=== PATIENT | male | born 1995 | race Caucasian/White ===

== ENCOUNTER 2021-02-22 20:47 | Emergency (ER) | payer OTHER, SELFPAY ==
[2021-02-22 20:52] VITALS: BP 130/81; PULSE 66; RESP 18; TEMP 36.8; O2SAT 96; BMI 33.9
--- NOTE | 2021-02-22 22:39 | ED_ITS ---
HPI - Wound/Laceration General Chief Complaint: Wound/Laceration Stated Complaint: Finger laceration at work Source: patient Mode of arrival: ambulatory Limitations: no limitations History of Present Illness HPI narrative: 26-year-old male presents with laceration to the tip of his finger sustained at work. He was cutting a bagel with a serrated knife, slipped and cut the tip of his finger. He reports that his last Tdap vaccine was approximately 5 years ago. Patient does not have any other complaints at this time. Onset (ago): hour(s) (Within the hour of arrival) Place: work Patient tetanus UTD: No Context: accidental Associated symptoms: pain Related Data Home Medications Medication Instructions Recorded Confirmed methylprednisolone 4 mg tablet mg PO 06/13/20 11/08/20 desvenlafaxine succinate 100 mg 100 mg PO QAM 10/06/20 01/25/21 tablet,extended release 24 hr zolpidem 10 mg tablet 10 mg PO BEDTIME PRN 11/08/20 01/25/21 Previous Rx's Medication Instructions Recorded dextroamphetamine-amphetamine 30 30 mg PO DAILY 30 Days #30 tab 07/20/20 mg tablet prednisone 50 mg tablet 50 mg PO DAILY 6 Days #6 tab 12/07/20 prednisone 20 mg tablet 20 mg PO .COMPLEX #18 tab 01/25/21 Allergies Allergy/AdvReac Type Severity Reaction Status Date / Time fluoxetine [Prozac] Allergy Unknown seizure Verified 01/25/21 12:35 Review of Systems Review of Systems: Constitutional: No Fever, No Chills ENT/Mouth: No Ear Pain, No Hoarseness, No sore throat Eyes: No Eye Pain, No Swelling, No Redness, No Foreign Body Cardiovascular: No Chest Pain, No SOB Respiratory: No Cough, No Dyspnea Gastrointestinal: No Nausea, No Vomiting, No Diarrhea, No abdominal Pain Genitourinary: No Dysuria, No Hematuria Musculoskeletal: positive left index finger pain, No Myalgias, No Joint Swelling Skin: Positive left index finger laceration, No rash Neuro: No Weakness, No Numbness, No Paresthesias, No Loss of Consciousness, No Dizziness, No Headache Psych: No Anxiety/Panic, No Depression Heme/Lymph: no easy bruising, no Lymphadenopathy Endocrine: No Polyuria, No Polydipsia Yes all other systems are reviewed and are negative [facility] Past Medical History Attestation statement: The following information was validated with the patient. Source: old records reviewed Medical History ADD (attention deficit disorder) ADHD Mireles's palsy IBS (irritable bowel syndrome) Surgical History H/O colonoscopy Family History Family History Father No problems noted. Mother Hypothyroidism Lymphoma Brother No problems noted. Brother No problems noted. Brother No problems noted. Social History Social History Alcohol intake: never Advance Directives: No Physical Exam Vital Signs: Vital Signs: Last Vital Signs Temp 98.3 F 02/22/21 20:52 Pulse 66 02/22/21 20:52 Resp 18 02/22/21 20:52 BP 130/81 02/22/21 20:52 Pulse Ox 96 02/22/21 20:52 Body Mass Index 33.9 Appearance: Alert. Oriented X3. No acute distress. Eyes: Pupils equal, round and reactive to light. ENT: Pharynx normal. Neck: Normal inspection. Neck supple. CVS: Normal heart rate and rhythm. Pulses normal. Respiratory: No respiratory distress. Breath sounds normal. Abdomen: Soft and nontender. Skin: Positive 1 cm laceration to the tip of left index finger, the tip of the nail is involved but does not include the nail bed, full range of motion, no indication of tendon injury, brisk capillary refill, otherwise all other Skin warm and dry. Normal skin color. Normal skin turgor. Extremities: No lower extremity edema. Neuro: No motor deficit. No sensory deficit. Course Course Course Narrative: 26-year-old male presents with laceration to the tip of his finger sustained while he was at work. Tdap updated today. Prepped and draped in sterile fashion, irrigated with copious amounts of normal saline, please refer to procedure note for full details. Three sutures applied. Brisk capillary refill in full range of motion maintained status post suture placement laceration repair plan of care is for patient to be discharged home, will have patient follow up with [facility]. 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 Patient verbalized understanding of and agrees to plan of care discharge home. Procedures Laceration Laceration 1: Site: hand Side (If applicable): left (Index finger) Size (cm): 1 Description: flap Depth: simple, single layer Local Anesthetic: lidocaine 2% Amount of anesthesia used (mL): 3 Pre-repair: wound explored, irrigated extensively and deep structures intact Skin layer closed with: nylon Size (cm): 5-0 Number of sutures: 3 Technique: simple, interrupted MDM - Wound/Laceration Differential Diagnosis Differential diagnosis: Likely laceration Medical Records Attestation: I reviewed the patient's medical records. Discharge Plan Discharge Clinical Impression: Laceration Patient Disposition: Home, Self-Care Instructions: Finger Laceration (ED) Additional Instructions: You were evaluated for laceration to the tip of her finger sustained while working. We placed 3 sutures. Please do not work for 5 days to ensure proper healing. Please return in 7 days to have sutures removed. Please follow-up with work [facility] as this is a work related injury. We updated your Tdap vaccine today. Thank you for choosing this emergency department for evaluation. Please follow-up with primary care physician as needed. Return to the emergency department for any new, concerning, or worsening symptoms. Prescriptions: No Action dextroamphetamine-amphetamine [Adderall] 30 mg tablet 30 mg PO DAILY 30 Days Qty: 30 RF: 0 prednisone 50 mg tablet 50 mg PO DAILY 6 Days Qty: 6 RF: 0 methylprednisolone 4 mg tablet PO RF: 0 zolpidem 10 mg tablet 10 mg PO BEDTIME PRNRF: 0 prednisone 20 mg tablet 20 mg PO .COMPLEX Qty: 18 RF: 0 desvenlafaxine succinate 100 mg tablet extended release 24 hr 100 mg PO QAM RF: 0 Referrals: [facility] [Provider Group] - 2 days (Laceration sustained at work) Stand Alone Forms: Work/School Release Interventions: ED Discharge Assessment Last Done: 02/22/21 23:30 Discharge Date/Time: 02/22/21 23:31
[2021-02-22] MEDS: Diphth,Pertus(ACell),Tet Adult 0.5 ML SYRINGE IM (22:55)
[2021-02-22] MEDS: Lidocaine HCl 2 % MPF 5 ML VIAL SUBCUT (22:55)
== END 2021-02-22 23:31 | disposition home or self-care (01) ==
PROVIDERS: Emergency Provider Internal Medicine; PCP Nurse Practitioner Family
DX: S61.311A Laceration without foreign body of left index finger with damage to nail, initial encounter (principal); W26.0XXA Contact with knife, initial encounter; Y93.G3 Activity, cooking and baking; Y92.89 Other specified places as the place of occurrence of the external cause; Y99.0 Civilian activity done for income or pay
CPT/HCPCS: 12001; 90471; 90715; 99283; 99284

== ENCOUNTER → 2021-03-01 15:00 | Outpatient (BNVA) | payer OTHER, SELFPAY | PROVIDERS: PCP Nurse Practitioner Family; Visit Provider Physician Assistant Medical | DX: S61.211A Laceration without foreign body of left index finger without damage to nail, initial encounter (principal); W26.0XXA Contact with knife, initial encounter | CPT/HCPCS: 99203; 99212 ==

== ENCOUNTER 2021-04-13 14:06 | Outpatient (REF) | payer OTHER, SELFPAY | END 2021-04-13 14:07 | disposition home or self-care (01) | LOC: HO.LNP 14:06 | PROVIDERS: Visit Provider Hospitalist | DX: K29.70 Gastritis, unspecified, without bleeding (principal) | CPT/HCPCS: U0003; U0005 ==

== ENCOUNTER 2021-05-31 09:04 | Outpatient (REF) | payer OTHER, SELFPAY ==
--- NOTE | ~2021-05-31 | XR_ITS ---
EXAMINATION: XR CERVICAL SPINE CLINICAL INFORMATION: Radiculopathy. COMPARISON: None TECHNIQUE: 3 views of the cervical spine were obtained. FINDINGS: There are no prevertebral soft tissue or bony abnormalities demonstrated. No compression fractures or subluxations are identified. Alignment is maintained at the atlanto-axial articulation. The disc spaces are preserved. No endplate changes are seen. The prevertebral soft tissues are normal. The foramina are patent. XR/XR cervical spine 3V IMPRESSION: Unremarkable cervical spine examination.
== END 2021-05-31 09:05 | disposition home or self-care (01) ==
LOC: HO.HMGCX 09:04
PROVIDERS: PCP Nurse Practitioner Family; Visit Provider Physician Assistant Medical
DX: M54.12 Radiculopathy, cervical region (principal)
CPT/HCPCS: 72040

== ENCOUNTER 2021-08-06 14:38 | Outpatient (REF) | payer OTHER, SELFPAY ==
--- NOTE | ~2021-08-06 | XR_ITS ---
EXAMINATION: XR FOOT, LEFT CLINICAL INFORMATION: Pain in the left foot COMPARISON: None TECHNIQUE: AP, lateral, and oblique views of the left foot. FINDINGS: The bones and soft tissues are normal. No fracture. Alignment is anatomic. Joint spaces are maintained. XR/XR foot LT min 3V IMPRESSION: Normal left foot.
== END 2021-08-06 14:39 | disposition home or self-care (01) ==
LOC: HO.HMGCX 14:38
PROVIDERS: PCP Nurse Practitioner Family; Visit Provider Nurse Practitioner Family
DX: M79.672 Pain in left foot (principal)
CPT/HCPCS: 73630

== ENCOUNTER 2021-12-14 14:56 | Outpatient (REF) | payer OTHER, SELFPAY ==
--- NOTE | ~2021-12-14 | XR_ITS ---
EXAMINATION: XR SHOULDER, LEFT CLINICAL INFORMATION: S43.402A - Unspecified sprain of left shoulder joint. COMPARISON: Chest radiographs 10/26/2019 TECHNIQUE: Left shoulder is imaged in 5 views. FINDINGS: No fracture, dislocation, or arthropathy. The glenohumeral joint appears normal. The acromioclavicular alignment is normal. There are no visible rotator cuff calcifications. Bony mineralization is normal. Left lung apex is clear. XR/XR shoulder LT min 2V IMPRESSION: Normal left shoulder.
== END 2021-12-14 14:57 | disposition home or self-care (01) ==
LOC: HO.HMGCX 14:56
PROVIDERS: Visit Provider Internal Medicine
DX: S43.402A Unspecified sprain of left shoulder joint, initial encounter (principal)
CPT/HCPCS: 73030

== ENCOUNTER 2022-04-01 10:30 | Outpatient (REF) | payer OTHER, SELFPAY ==
--- NOTE | ~2022-04-01 | XR_ITS ---
EXAMINATION: XR ABDOMEN COMPLETE CLINICAL INDICATION: Irritable bowel syndrome without diarrhea. COMPARISON: None TECHNIQUE: 2 views of the abdomen. FINDINGS: There is scattered stool minimal stool and gas in the colon without distention. No organomegaly. No radiopaque calculi. No gross bony abnormality. XR/XR abdomen min 2V IMPRESSION: Mild constipation otherwise unremarkable KUB
== END 2022-04-01 10:31 | disposition home or self-care (01) ==
LOC: HO.HMGCX 10:30
PROVIDERS: PCP Nurse Practitioner Family; Visit Provider Internal Medicine
DX: K58.9 Irritable bowel syndrome, unspecified (principal)
CPT/HCPCS: 74019

== ENCOUNTER 2023-03-28 15:19 | Outpatient (AMB) | payer OTHER, SELFPAY ==
[2023-03-28 15:21] VITALS: BP 122/76; PULSE 80; TEMP 36.6; O2SAT 97; BMI 34.2
--- NOTE | 2023-03-28 15:21 | MHC.OFFWIV ---
Intake Vital Signs 03/28/23 15:21 Height 5 ft 11 in Weight 245 lb BMI 34.2 BP 122/76 Blood Pressure Location Lt brachial Position Sitting Pulse 80 Pulse Source Pulse Oximeter Temp 97.9 F Temp Source Temporal Artery Scan Pulse Oximetry (%) 97 Intake Visit Reasons: EP, Low Back Pain Intake Note: pt is here for c/o lower back pain Patient Tobacco Use Status: Former Tobacco user Allergies fluoxetine [Prozac] Allergy (Unknown, Verified 03/28/23 15:21) seizure Do you need a note to return to daycare/school/sports/work: Yes HPI HPI Comments History of Present Illness Details This is a 28-year-old male who presents to the office today for sick visit. Patient complaining of right-sided low back pain with radiation into his right leg x1 month. Patient states he had some right-sided low back muscle spasms after performing some physical therapy exercises 1 month ago. He denies any trauma or injury to the area. He and started to develop shooting pain into his right lower extremity. He denies any numbness/weakness/paresthesias of his extremities. He denies any bowel/bladder retention/incontinence. He denies any fever/chills. He denies any saddle anesthesias. Patient is otherwise feeling well without chest pain, shortness of breath, abdominal pain, nausea/vomiting/diarrhea, dysuria/hematuria, or urinary frequency/urgency. [facility] Medical History (Updated 12/20/21 @ 07:44 by Moo Restrepo MD) ADD (attention deficit disorder) ADHD Mireles's palsy IBS (irritable bowel syndrome) Surgical History (System 09/03/21 @ 13:34 by Saida Milligan) H/O colonoscopy Family History Father No problems noted. Mother Hypothyroidism Lymphoma Brother No problems noted. Brother No problems noted. Brother No problems noted. Social History (System 09/03/21 @ 13:34 by Saida Milligan) Housing: House Alcohol intake: never Patient Tobacco Use Status: Former Tobacco user Tobacco use type: Cigarette Years Smoked: quit 9months ago e-Cigarette/Vaping Use: Currently Using Second Hand Smoke Exposure: Yes service: No Current occupational status: employed Current occupation: [employer] Current occupational exposures/hazards: Yes Review of Systems Const All systems reviewed & are unremarkable except as noted in HPI and below Reports no additional complaints Eyes Reports no additional complaints ENT Reports no additional complaints Card Reports no additional complaints Resp Reports no additional complaints GI Reports no additional complaints Reports no additional complaints Musc Reports no additional complaints and Reports back pain Skin/Breast Reports system reviewed and no additional complaints, except as documented Neuro Reports no additional complaints Psych Reports no additional complaints Endo Reports no additional complaints Bernardino/Lymph Reports no additional complaints Aller/Immun Reports no additional complaints Physical Exam Vital Signs: Last Vital Signs Temp 97.9 F 03/28/23 15:21 Pulse 80 03/28/23 15:21 BP 122/76 03/28/23 15:21 Pulse Ox 97 03/28/23 15:21 BMI result Body Mass Index 34.2 Const General: cooperative, healthy appearing, no acute distress and well developed Orientation/consciousness: patient oriented x3 HEENT Head: Yes normal to inspection Ears: hearing grossly normal bilaterally General nose exam: Normal external nose present Face and sinus: Yes normal facial exam Mouth: Normal oral and palatal mucosa present Eyes General: appearance normal, both eyes and all related structures Pupils: Equal, round and reactive pupils present EOM: EOMs intact bilaterally Resp Effort & Inspection: normal respiratory effort and no respiratory distress Auscultation: clear to auscultation bilaterally Cardio Rate: regular rate Rhythm: regular rhythm Heart sounds: no gallops, no murmurs and no rubs Peripheral pulses: Peripheral pulses 2+ throughout GI Inspection: No distended Palpation (GI): Soft to palpation and nontender Auscultation: normal bowel sounds General: Yes no CVA tenderness Back/Spine/Pelvis Other: No spinous process or midline tenderness to palpation. Negative straight leg raise bilaterally. Tenderness to palpation of the right paraspinal musculature with mild spasm. Back: no CVA tenderness Skin General skin exam: no rashes or lesions noted Neuro General: patient oriented x3 Cranial nerves: Yes CN's II-XII intact bilaterally and Yes Equal, round and reactive pupils present Gait exam (Neuro): Normal gait present Motor exam (neuro): 5/5 motor strength present throughout Extrem General: Yes normal to inspection, Yes full ROM and Yes no clubbing, cyanosis or edema Psych Appearance: grossly normal Mental Status: mental status grossly normal Assessment & Plan Assessment & Plan (1) Sprain, lumbosacral: Code(s): S33.9XXA - Sprain of unspecified parts of lumbar spine and pelvis, initial encounter (2) Sciatic leg pain: Code(s): M54.30 - Sciatica, unspecified side Plan This is a 28-year-old male presenting to the office complaining of right-sided low back pain with radiation of pain into his right lower extremity. History and physical most consistent with a lumbosacral sprain causing sciatica. Patient has no red flag symptoms to suggest cauda equina syndrome or disc herniation. On physical examination, straight leg raise test is negative bilaterally and patient has mild tenderness to palpation of the right paraspinal musculature with palpable spasm. Patient prescribed p.o. gabapentin 300 mg at bedtime as well as p.o. methocarbamol 500 mg as needed for muscle spasms. Patient encouraged to make a follow-up appointment with his primary care physician for possible imaging including CT or MRI of his lumbar spine if his symptoms persist or worsen. Patient advised to follow-up here or go to the emergency room if he were to develop any red flag symptoms. Patient verbalizes understanding and he is in agreement with the plan. Medications: New methocarbamol 500 mg PO BEDTIME PRN 14 tabs 0RF muscle spasm gabapentin 300 mg PO BEDTIME 14 caps 0RF Coding Level of Care Code Est Pt Level 3 (52864) Diagnoses Sprain, lumbosacral S33.9XXA Sciatic leg pain M54.30
== END 2023-03-28 16:02 | disposition home or self-care (01) ==
PROVIDERS: PCP Nurse Practitioner Family; Visit Provider Physician Assistant Medical
DX: S33.9XXA Sprain of unspecified parts of lumbar spine and pelvis, initial encounter (principal); M54.30 Sciatica, unspecified side
CPT/HCPCS: 99213

== ENCOUNTER 2023-07-23 09:47 | Outpatient (AMB) | payer OTHER, SELFPAY ==
--- NOTE | 2023-07-23 10:04 | A.OFFPC_ITS ---
Vital Signs 07/23/23 10:07 Weight 241 lb BP 110/70 Blood Pressure Location Rt brachial Position Sitting Pulse 73 Pulse Source Pulse Oximeter Pulse Oximetry (%) 95 Oxygen Delivery Method Room Air Intake Visit Reasons: WC-Shoulder pain/FMLA paperwork Allergies fluoxetine [Prozac] Allergy (Unknown, Verified 07/23/23 10:07) seizure Tobacco use date assessed: 07/23/23 Dental Screening Dental Screen Date: 07/23/23 Did you have a dental visit in the last 12 months?: No Did you have a dental problem in the last 6 months where you did not have access to dental care?: No Was dental information given to patient?: Patient declined HPI WC-Shoulder pain/FMLA paperwork HPI Details Pt reports that in November he was at work and felt a pop in his shoulder causing pain. He is seeing ortho ([facility]) and was told he has a rotator cuff issue. Pt is currently going to PT and will follow up with ortho once he completes this. Pt has been out of work since 06/30 and will remain out until 09/03/22. Denies fever, chills, and dizziness. [facility] Medical History (Updated 12/20/21 @ 07:44 by Moo Restrepo MD) IBS (irritable bowel syndrome) Mireles's palsy ADHD ADD (attention deficit disorder) Surgical History (System 09/03/21 @ 13:34 by Saida Milligan) H/O colonoscopy Family History Father No problems noted. Mother Hypothyroidism Lymphoma Brother No problems noted. Brother No problems noted. Brother No problems noted. Social History (System 09/03/21 @ 13:34 by Saida Milligan) Housing: House Alcohol intake: never Patient Tobacco Use Status: Former Tobacco user Tobacco use type: Cigarette Years Smoked: quit 9months ago e-Cigarette/Vaping Use: Currently Using Second Hand Smoke Exposure: Yes service: No Current occupational status: employed Current occupation: [employer] Current occupational exposures/hazards: Yes Cognitive needs: No Hearing needs: No Vision needs: No Questionnaire Thrive Questionnaire Date Thrive assessed: 08/06/21 AUDIT C Alcohol Use Questionnaire (AUDIT-C) 1. How often do you have a drink containing alcohol?: Never 3. How often do you have six or more drinks on one occasion?: Never Total Score: 0 Score Reviewed/Action Taken: No REESE-7 AMB Questionnaire REESE-7 Date REESE - 7 assessed: 08/06/21 Source: Developed by Drs. Juan Carlos Wiggins, aTbatha Mancera, Toan Malloy and colleagues, with an educational susy from [employer]. Review of Systems Const Reports as per HPI Physical exam (Primary Care) Vital Signs: Last Vital Signs Pulse 73 07/23/23 10:07 BP 110/70 07/23/23 10:07 Pulse Ox 95 07/23/23 10:07 Oxygen Delivery Method Room Air 07/23/23 10:07 Tobacco/Smoking Status: Tobacco use Status Tobacco use date assessed 07/23/23 07/23/23 10:09 Patient Tobacco Use Status Former Tobacco user 07/23/23 10:05 Tobacco use type Cigarette 07/23/23 10:05 e-Cigarette/Vaping Use Currently Using 07/23/23 10:05 Thrive Assessment: Date of Thrive Assessment Date Thrive assessed 08/06/21 07/23/23 10:05 Const General: cooperative Orientation/consciousness: patient oriented x3 Resp Effort & Inspection: normal respiratory effort Auscultation: clear to auscultation bilaterally Cardio Rate: regular rate Rhythm: regular rhythm Heart sounds: S1 normal heart sound present, S2 normal heart sound present and no murmurs Neuro General: patient oriented x3 Extrem Other: + soliman, neg neers, neg jobes, + radial pulse Psych Appearance: grossly normal Mental Status: mental status grossly normal Speech and movement: Normal speech and movement present Affect: normal affect Attitude: cooperative Thought process: Normal thought process present Thought content: Normal thought content present Insight: Good insight present (Psych) Judgement: Good judgement present (Psych) Assessment and Plan Assessment & Plan (1) Sprain of left shoulder: Code(s): S43.402A - Unspecified sprain of left shoulder joint, initial encounter Plan The patient agreed to the use of a medical collections specialist for this encounter. Scribed for CHANTEL Holder by Danielle Wolfe medical collections specialist, on 07/23/2023 at 10:20 EST. Coding Level of Care Code Est Pt Level 3 (88912) Diagnoses Sprain of left shoulder S43.402A
[2023-07-23 10:07] VITALS: BP 110/70; PULSE 73; O2SAT 95
== END 2023-07-23 10:36 | disposition home or self-care (01) ==
PROVIDERS: PCP Nurse Practitioner Family; Visit Provider Nurse Practitioner Family
DX: S43.402A Unspecified sprain of left shoulder joint, initial encounter (principal); Z04.2 Encounter for examination and observation following work accident
CPT/HCPCS: 99213

== ENCOUNTER 2023-12-24 10:38 | Outpatient (AMB) | payer OTHER, SELFPAY ==
--- NOTE | 2023-12-24 10:46 | A.OFFPC_ITS ---
Vital Signs 12/24/23 10:48 Height 5 ft 11 in Weight 245 lb BMI 34.2 BP 120/80 Blood Pressure Location Rt brachial Position Sitting Pulse 92 Pulse Source Pulse Oximeter Pulse Oximetry (%) 98 Oxygen Delivery Method Room Air Intake Visit Reasons: Annual PE Intake Note: Patient here for physical exam. pt would like refill on inhaler Allergies fluoxetine [Prozac] Allergy (Unknown, Verified 12/24/23 11:14) seizure Medication List - Last Reconciled 12/24/23 by CHANTEL Guardado albuterol sulfate 90 mcg/actuation (Ventolin HFA) 2 puffs inhalation Q6H PRN desvenlafaxine succinate ER 100 mg PO QAM 30 days gabapentin 300 mg PO BEDTIME lisdexamfetamine (Vyvanse) 40 mg PO QAM Tobacco use date assessed: 12/24/23 Dental Screening Dental Screen Date: 12/24/23 Did you have a dental visit in the last 12 months?: No Did you have a dental problem in the last 6 months where you did not have access to dental care?: No Was dental information given to patient?: No HPI Annual PE HPI Details Pt is here for a PE. Will order labs. Pt sees a therapist and psychiatrist. [facility] Medical History (Updated 12/24/23 @ 11:05 by CHANTEL Guarddao) IBS (irritable bowel syndrome) Mireles's palsy ADHD ADD (attention deficit disorder) Surgical History H/O colonoscopy Family History Father No problems noted. Mother Hypothyroidism Lymphoma Brother No problems noted. Brother No problems noted. Brother No problems noted. Social History Housing: House Alcohol intake: never Patient Tobacco Use Status: Former Tobacco user Tobacco use type: Cigarette Years Smoked: quit 9months ago e-Cigarette/Vaping Use: Currently Using Second Hand Smoke Exposure: Yes service: No Current occupational status: employed Current occupation: [employer] Current occupational exposures/hazards: Yes Cognitive needs: No Hearing needs: No Vision needs: No Questionnaire PHQ-9 Over the last 2 weeks, how often have you been bothered by any of the following problems? 1. Little interest or pleasure in doing things: nearly every day 2. Feeling down, depressed, or hopeless: more than half the days 3. Trouble falling or staying asleep, or sleeping too much: nearly every day 4. Feeling tired or having little energy: nearly every day 5. Poor appetite or overeating: nearly every day 6. Feeling bad about yourself - or that you are a failure or have let yourself or your family down: several days 7. Trouble concentrating on things, such as reading the newspaper or watching television: more than half the days 8. Moving or speaking so slowly that other people could have noticed. Or the opposite - being so fidgety or restless that you have been moving around a lot more than usual: not at all 9. Thoughts that you would be better off or of hurting yourself in some way: not at all Total score: 17 Depression Screening Interpretation: Positive (has a psychiatrist and therapist, denies any SI or HI) Depression Screening Follow-up: Existing condition and In treatment Depression Screening Done: Yes 95803 - PHQ-9 Billing: Yes Source: Developed by Drs. Juan Carlos Wiggins, Tabatha Mancera, Toan Malloy and colleagues, with an educational susy from [employer] Thrive Questionnaire Date Thrive assessed: 12/24/23 I am a: Patient What is your living situation today?: I do not have a steady places to live Within the past 12 months, did the food you bought not last and you didn't have the money to get more?: Sometimes True Within the past 12 months, did you worry whether your food would run out before you got money to buy more?: Never true Do you have trouble paying for medicines?: No Do you have trouble getting transportation to medical appointments?: No Do you have trouble paying your heating and electricity bill?: No Do you have trouble taking care of your child, family member or friend?: No Do you have trouble with day-to-day activities such as bathing, preparing meals, shopping, managing finances, etc.?: Yes Are you currently unemployed and looking for a job?: Yes Are you interested in more education?: Yes Currently or been in a relationship where the following occur: I choose not to answer this question THRIVE Score: 2 AUDIT C Alcohol Use Questionnaire (AUDIT-C) 1. How often do you have a drink containing alcohol?: Never 3. How often do you have six or more drinks on one occasion?: Never Total Score: 0 Score Reviewed/Action Taken: No REESE-7 AMB Questionnaire REESE-7 Date REESE - 7 assessed: 08/06/21 Feeling nervous, anxious, or on edge: 3 = Nearly every day Not being able to stop or control worryin = Several days Worrying too much about different things: 0 = Not at all Trouble relaxin = Nearly every day Being so restless that it is hard to sit still: 2 = More than half the days Becoming easily annoyed or irritable: 1 = Several days Feeling afraid as if something awful might happen: 1 = Several days Total REESE-7 score (0-4 normal; 5-9 mild; 10-14 moderate; 15-21 severe): 11 Source: Developed by Drs. Juan Carlos Wiggins, Tabatha Mancera, Toan Malloy and colleagues, with an educational susy from [employer] REESE-7 Assessment Billing REESE-7 Assessment Tool: REESE-7 Assessment 03427 (sees a psychiatrist and therapist, denies any SI or HI) Review of Systems Const Denies chills and Denies fever(s) Eyes Denies blurry vision ENT Denies vertigo, Denies dizziness and Denies sore throat Card Denies chest pain at rest, Denies chest pain with activity, Denies diaphoresis, Denies dyspnea and Denies dyspnea on exertion Resp Denies cough, Denies dyspnea, Denies dyspnea on exertion and Denies wheezing GI Denies abdominal pain, Denies melena, Denies hematochezia, Denies constipation, Denies diarrhea and Denies loose stools Denies hematuria Musc Denies numbness and Denies tingling Skin/Breast Denies lesions Neuro Denies vertigo, Denies dizziness, Denies numbness and Denies tingling Psych Denies anxiety, Denies depression, Denies homicidal ideation, Denies suicidal ideation and Denies other (substance abuse) Aller/Immun Denies wheezing Physical exam (Primary Care) Vital Signs: Last Vital Signs Pulse 92 12/24/23 10:48 BP 120/80 12/24/23 10:48 Pulse Ox 98 12/24/23 10:48 Oxygen Delivery Method Room Air 12/24/23 10:48 BMI result Body Mass Index 34.2 Tobacco/Smoking Status: Tobacco use Status Tobacco use date assessed 12/24/23 12/24/23 10:52 Patient Tobacco Use Status Former Tobacco user 12/24/23 10:47 Tobacco use type Cigarette 12/24/23 10:47 e-Cigarette/Vaping Use Currently Using 12/24/23 10:47 Depression Screening Interpretation: Positive (has a psychiatrist and therapist, denies any SI or HI) Depression Screening Follow-up: Existing condition and In treatment Thrive Assessment: Date of Thrive Assessment Date Thrive assessed 08/06/21 12/24/23 10:47 Currently or been in a relationship where the following occur: I choose not to answer this question Const General: cooperative Nutritional Appearance: well nourished Orientation/consciousness: patient oriented x3 HENMT Head: Yes normal to inspection, Yes normocephalic and Yes atraumatic Ears: TM's normal bilaterally Eyes General: appearance normal, both eyes and all related structures Alignment and Position: alignment normal and position normal Neck Neck: Yes normal visual inspection and Yes no lymphadenopathy Thyroid: Thyroid normal Resp Effort & Inspection: normal respiratory effort Auscultation: clear to auscultation bilaterally Cardio Rate: regular rate Rhythm: regular rhythm Heart sounds: S1 normal heart sound present, S2 normal heart sound present and no murmurs GI Palpation (GI): Soft to palpation and nontender Auscultation: normal bowel sounds Male General Exam: Yes normal external exam Penis: normal penis Scrotum: scrotum normal, testes descended bilaterally and no inguinal hernias Testes: no testicular mass Skin Rashes: no rashes Neuro General: patient oriented x3, moves all extremities, no focal motor deficits and deep tendon reflexes 2+ bilaterally Romberg Test: Negative Psych Appearance: grossly normal Mental Status: mental status grossly normal Speech and movement: Normal speech and movement present Affect: normal affect Attitude: cooperative Thought process: Normal thought process present Thought content: Normal thought content present Insight: Good insight present (Psych) Judgement: Good judgement present (Psych) Assessment and Plan Assessment & Plan (1) Anxiety with depression: Code(s): F41.8 - Other specified anxiety disorders Plan: has a therapist and psychiatrist, denies any SI or HI. (2) Positive screening for depression on 9-item Patient Health Questionnaire (PHQ-9): Code(s): Z13.31 - Encounter for screening for depression Plan: has a therapist and psychiatrist, denies any SI or HI. (3) Encounter for routine adult physical exam with abnormal findings: Code(s): Z00.01 - Encounter for general adult medical examination with abnormal findings Plan: Labs ordered Plan The patient agreed to the use of a medical services manager for this encounter. Scribed for CHANTEL Holder by Danielle Wolfe medical services manager, on 12/24/2023 at 11:00 EST. Orders: Orders Complete Blood Count Auto Diff Today Z00.01 - Encounter for general adult medical examination with abnormal findings Comprehensive [place]. Panel Fast Today Z00.01 - Encounter for general adult medical examination with abnormal findings TSH reflex Free T4 Today Z00.01 - Encounter for general adult medical examination with abnormal findings UA CC w/rflx Micro + Cult Today Z00.01 - Encounter for general adult medical examination with abnormal findings Lipid Panel Today Z00.01 - Encounter for general adult medical examination with abnormal findings Medications: New albuterol sulfate 90 mcg/actuation (Ventolin HFA) 2 puffs inhalation Q6H PRN 8.5 grams 0RF shortness of breath or wheezing Coding Level of Care Code Est Pt Prev Care 18-39y(57826) Diagnoses Anxiety with depression F41.8 Positive screening for depression on 9-item Patient Health Questionnaire (PHQ-9) Z13.31 Encounter for routine adult physical exam with abnormal findings Z00.01 Additional Codes REESE-7 Assessment Billing - REESE-7 Assessment Tool: REESE-7 Assessment 84896 ([id number])
[2023-12-24 10:48] VITALS: BP 120/80; PULSE 92; O2SAT 98; BMI 34.2
== END 2023-12-24 11:10 | disposition home or self-care (01) ==
PROVIDERS: PCP Nurse Practitioner Family; Visit Provider Nurse Practitioner Family
DX: Z00.00 Encounter for general adult medical examination without abnormal findings (principal); F41.8 Other specified anxiety disorders; Z13.31 Encounter for screening for depression
CPT/HCPCS: 99395

== ENCOUNTER 2023-12-25 12:22 | Outpatient (AMB) | payer OTHER, SELFPAY ==
[2023-12-25 12:43] VITALS: BP 120/76; PULSE 90; TEMP 36.6; O2SAT 97; BMI 34.2
--- NOTE | 2023-12-25 12:43 | AM.OFFWIN_ITS ---
Intake Vital Signs 12/25/23 12:43 Height 5 ft 11 in Weight 245 lb BMI 34.2 BP 120/76 Blood Pressure Location Rt brachial Position Sitting Pulse 90 Pulse Source Pulse Oximeter Temp 97.8 F Temp Source Temporal Artery Scan Pulse Oximetry (%) 97 Intake Visit Reasons: EST/vomiting for over 12 hrs (lobby masked) Intake Note: pt is here for vomiting for over 12 hrs Patient Tobacco Use Status: Former Tobacco user Allergies fluoxetine [Prozac] Allergy (Unknown, Verified 12/25/23 12:43) seizure Do you need a note to return to daycare/school/sports/work: No HPI HPI Comments History of Present Illness Details The patient presents to the urgent care for evaluation of vomiting and diarrhea. He states that last night around 18:00 he ate [employer] fish sandwich and at 19:00 started having vomiting and soon after developed diarrhea. It has been going on for the past 12 hours continuously. He has been unable to hold down any liquids. [facility] Medical History (Updated 12/24/23 @ 11:05 by CHANTEL Guardado) IBS (irritable bowel syndrome) Mireles's palsy ADHD ADD (attention deficit disorder) Surgical History H/O colonoscopy Family History Father No problems noted. Mother Hypothyroidism Lymphoma Brother No problems noted. Brother No problems noted. Brother No problems noted. Social History Housing: House Alcohol intake: never Patient Tobacco Use Status: Former Tobacco user Tobacco use type: Cigarette Years Smoked: quit 9months ago e-Cigarette/Vaping Use: Currently Using Second Hand Smoke Exposure: Yes service: No Current occupational status: employed Current occupation: [employer] Current occupational exposures/hazards: Yes Cognitive needs: No Hearing needs: No Vision needs: No Physical Exam Vital Signs: Last Vital Signs Temp 97.8 F 12/25/23 12:43 Pulse 90 12/25/23 12:43 BP 120/76 12/25/23 12:43 Pulse Ox 97 12/25/23 12:43 BMI result Body Mass Index 34.2 Const General: healthy appearing and no acute distress Orientation/consciousness: patient oriented x3 Eyes Corneas: corneas normal Pupils: Equal, round and reactive pupils present Resp Effort & Inspection: normal respiratory effort and able to speak in complete sentences GI Palpation (GI): nontender Neuro General: patient oriented x3 Cranial nerves: Yes Equal, round and reactive pupils present Psych Appearance: grossly normal Attitude: cooperative Assessment & Plan Assessment & Plan (1) Food poisoning: Code(s): A05.9 - Bacterial foodborne intoxication, unspecified Plan The patient is suffering from food poisoning. Will prescribe Zofran and recommend follow-up. Symptoms will likely resolve in the next 1-2 days. Recommend going to the ER if no improvement vomiting after Zofran. Medications: New ondansetron 4 mg PO Q6-8H PRN 10 tabs 0RF nausea and vomiting Coding Level of Care Code Est Pt Level 3 (15910) Diagnoses Food poisoning A05.9
== END 2023-12-25 13:29 | disposition home or self-care (01) ==
PROVIDERS: PCP Nurse Practitioner Family; Visit Provider Emergency Medicine
DX: A05.9 Bacterial foodborne intoxication, unspecified (principal)
CPT/HCPCS: 99213

== ENCOUNTER 2024-06-15 09:40 | Outpatient (AMB) | payer OTHER, SELFPAY ==
--- NOTE | 2024-06-15 09:54 | MHC.OFFWIV ---
Intake Vital Signs 06/15/24 09:55 Weight 249 lb BP 130/90 H Blood Pressure Location Lt brachial Position Sitting Pulse 79 Pulse Source Pulse Oximeter Pulse Oximetry (%) 98 Oxygen Delivery Method Room Air Intake Visit Reasons: EP Pain on LT foot & big toe- becomes swollen Intake Note: Patient here for left foot pain that has been present for about 2 weeks, he states it has been getting swollen. Patient Tobacco Use Status: Former Tobacco user Allergies fluoxetine [Prozac] Allergy (Unknown, Verified 06/15/24 09:55) seizure Do you need a note to return to daycare/school/sports/work: Yes HPI HPI Comments History of Present Illness Details Patient is a 29-year-old male complaining of a couple of weeks of pain on the bottom of his left foot. 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 He says he wear supportive shoes that are meant for standing for long periods of time. He denies any injury. He has not tried take any medications to make himself feel better. [facility] Medical History (Updated 06/15/24 @ 10:10 by Mara Vernon PA-C) IBS (irritable bowel syndrome) Mireles's palsy ADHD ADD (attention deficit disorder) Surgical History H/O colonoscopy Family History Father No problems noted. Mother Hypothyroidism Lymphoma Brother No problems noted. Brother No problems noted. Brother No problems noted. Social History Housing: House Alcohol intake: never Patient Tobacco Use Status: Former Tobacco user Tobacco use type: Cigarette Years Smoked: quit 9months ago e-Cigarette/Vaping Use: Currently Using Second Hand Smoke Exposure: Yes service: No Current occupational status: employed Current occupation: [employer] Current occupational exposures/hazards: Yes Cognitive needs: No Hearing needs: No Vision needs: No Review of Systems Const All systems reviewed & are unremarkable except as noted in HPI and below Physical Exam Vital Signs: Last Vital Signs Pulse 79 06/15/24 09:55 BP 130/90 H 06/15/24 09:55 Pulse Ox 98 06/15/24 09:55 Oxygen Delivery Method Room Air 06/15/24 09:55 Const General: cooperative, healthy appearing, comfortable, no acute distress and well developed Orientation/consciousness: patient oriented x3 Limitations: no limitations HEENT Head: Yes normal to inspection Ears: hearing grossly normal bilaterally General nose exam: Normal external nose present Face and sinus: Yes normal facial exam Eyes General: appearance normal, both eyes and all related structures Neck Neck: Yes normal visual inspection and Yes full ROM Resp Effort & Inspection: normal respiratory effort and able to speak in complete sentences Skin General skin exam: no rashes or lesions noted Neuro General: patient oriented x3 Extrem General: Yes normal to inspection Left lower extremity: foot Details: normal capillary refill, normal to inspection, tenderness Location: of the plantar foot, toes with normal ROM, no edema, vascular exam Details: normal capillary refill, tendon exam Details: active flexion normal and active extension normal and motor-sensory exam Details: light-touch normal; no abrasions, no lacerations, no ecchymosis, no foreign bodies and no puncture wound Assessment & Plan Assessment & Plan (1) Plantar fasciitis of left foot: Code(s): M72.2 - Plantar fascial fibromatosis Plan: Recommended patient ice the foot with a frozen water bottle as often as possible, recommended he use Aleve and rest it. He does have an appointment with his PCP in 2 days to follow up if no improvement in his pain. I did write a work note for today and tomorrow. Plan See above Coding Level of Care Code Est Pt Level 3 (27502) Diagnoses Plantar fasciitis of left foot M72.2
[2024-06-15 09:55] VITALS: BP 130/90; PULSE 79; O2SAT 98
== END 2024-06-15 10:09 | disposition home or self-care (01) ==
PROVIDERS: PCP Nurse Practitioner Family; Visit Provider Physician Assistant
DX: M72.2 Plantar fascial fibromatosis (principal)

== ENCOUNTER → 2024-06-15 09:40 | Outpatient (BNVA) | payer OTHER, SELFPAY | PROVIDERS: PCP Nurse Practitioner Family | DX: M72.2 Plantar fascial fibromatosis (principal) | CPT/HCPCS: 99212 ==

== ENCOUNTER 2024-07-01 08:10 | Outpatient (AMB) | payer OTHER, SELFPAY ==
[2024-07-01 08:15] VITALS: BP 130/90; PULSE 80; O2SAT 98
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
== END 2024-07-01 09:39 | disposition home or self-care (01) ==
PROVIDERS: PCP Nurse Practitioner Family; Visit Provider Physician Assistant
DX: S06.0X0A Concussion without loss of consciousness, initial encounter (principal); V89.2XXA Person injured in unspecified motor-vehicle accident, traffic, initial encounter; Z04.3 Encounter for examination and observation following other accident

== ENCOUNTER → 2024-07-01 08:10 | Outpatient (BNVA) | payer OTHER, SELFPAY | PROVIDERS: PCP Nurse Practitioner Family; Visit Provider Physician Assistant | DX: S06.0X0A Concussion without loss of consciousness, initial encounter (principal); V89.2XXA Person injured in unspecified motor-vehicle accident, traffic, initial encounter; Y93.9 Activity, unspecified; Y92.9 Unspecified place or not applicable; Y99.9 Unspecified external cause status | CPT/HCPCS: 99212 ==

== ENCOUNTER 2024-10-06 09:43 | Outpatient (REF) | payer OTHER, SELFPAY ==
--- NOTE | ~2024-10-06 | XR_ITS ---
EXAMINATION: XR TOES, LEFT CLINICAL INFORMATION: M79.675 - Pain in left toe(s) COMPARISON: None available. TECHNIQUE: 3 views of the left toes were obtained. FINDINGS: There are no fractures or dislocations. No joint effusion is identified. No bone, joint or soft tissue abnormality is demonstrated. XR/XR toe LT min 2V IMPRESSION: Normal left toes. Electronically signed by: Paresh Delaney MD 10/06/2024 10:35 AM [facility] GARCIA
--- OUTSIDE RECORDS SUMMARY | 2024-10-06 12:20 | XMS_ITS | Clinical Summary ---
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
== END 2024-10-06 09:44 | disposition home or self-care (01) ==
LOC: HO.HMGCX 09:43
PROVIDERS: PCP Nurse Practitioner Family; Visit Provider Physician Assistant
DX: M79.675 Pain in left toe(s) (principal)
CPT/HCPCS: 73660; 99212

== ENCOUNTER 2024-10-06 09:43 | Outpatient (AMB) | payer OTHER, SELFPAY ==
--- NOTE | 2024-10-06 09:58 | AM.OFFWIN_ITS ---
Intake Vital Signs 10/06/24 10:00 Weight 248 lb BP 122/70 Blood Pressure Location Lt brachial Position Sitting Pulse 77 Pulse Source Pulse Oximeter Pulse Oximetry (%) 98 Oxygen Delivery Method Room Air Intake Visit Reasons: EP ? infection on his pinky toe Intake Note: Patient here for pinky toe redness on left foot and toe nail has not grown back in the past 6-7 months and has become very irritated and painful when he walks. Patient Tobacco Use Status: Former Tobacco user Allergies fluoxetine [Prozac] Allergy (Unknown, Verified 10/06/24 10:01) seizure Do you need a note to return to daycare/school/sports/work: No HPI HPI Comments History of Present Illness Details Patient is a 29yo M who presents to office with toe redness/pain He said ongoing x 6-7 months L foot; 5th digit Noticed the nail has not grown back in 4-5 months He said in comparison there is a sore and worsens with shoe wearing SOmetimes after wearing shoes for a while it turns purple/red Pain level is 10/10 Worse with ambulation Has tried ice, heat, elevation without relief He said he still has feelign in toe [facility] History (Updated 10/06/24 @ 10:09 by Flor Corrales PA-C) IBS (irritable bowel syndrome) Mireles's palsy ADHD ADD (attention deficit disorder) Surgical History H/O colonoscopy Family History Father No problems noted. Mother Hypothyroidism Lymphoma Brother No problems noted. Brother No problems noted. Brother No problems noted. Social History Housing: House Alcohol intake: never Patient Tobacco Use Status: Former Tobacco user Tobacco use type: Cigarette Years Smoked: quit 9months ago e-Cigarette/Vaping Use: Currently Using Second Hand Smoke Exposure: Yes service: No Current occupational status: employed Current occupation: [employer] Current occupational exposures/hazards: Yes Cognitive needs: No Hearing needs: No Vision needs: No Review of Systems Const Denies chills and Denies fever(s) Musc Reports arthralgias (L 5th digit pain), Denies numbness, Denies stiffness and Denies tingling Skin/Breast Reports erythema (L 5th toe) Neuro Denies numbness and Denies tingling Physical Exam Vital Signs: Last Vital Signs Pulse 77 10/06/24 10:00 BP 122/70 10/06/24 10:00 Pulse Ox 98 10/06/24 10:00 Oxygen Delivery Method Room Air 10/06/24 10:00 General: Non-toxic, NAD. Speaking full sentences. Skin: Warm dry throughout L 5th digit has lateral area of erythema and ttp. No fluctuance, skin break down or ulcers noted. No abrasions/skin openings between digits on bilateral feet or on plantar surfaces. No drainage from L 5th digit and no nail irregularities. Eye: EOMI Cardiac: Bilateral DP Pulse intact MSK: + exquisit ttp L 5th digit on lateral aspect near IP joint. + sensation intact. No ttp all other digits on bilateral feet. Neurology: Alert. No aphasia or facial droop. Gait without abnormality Psych: Good mood and affect Assessment & Plan Assessment & Plan (1) Toe pain, left: Code(s): M79.675 - Pain in left toe(s) Plan: Patient seen and evaluated. Pt seen and evaluated. He is unsure if there was trauma to toe and no xray has been completed Will obtained imaging to r/o FB or fx Xray toe: wnl, no fx or soft tissue foreign body He has erythema and warmth to digit without dranable abscess Will trial short course antibiotic Note sent to PCP for podiatry referral Patient gave verbal understanding and had no additional questions or concerns at time of discharge All questions answered Orders: Orders XR toe LT min 2V Today M79.675 - Pain in left toe(s) Medications: New cephalexin 500 mg PO BID 14 caps 0RF Coding Level of Care Code Est Pt Level 3 (00432) Diagnoses Toe pain, left M79.675
[2024-10-06 10:00] VITALS: BP 122/70; PULSE 77; O2SAT 98
--- OUTSIDE RECORDS SUMMARY | 2024-10-06 11:16 | XMS_ITS | Clinical Summary ---
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 Name Role Phone Unavailable Primary Care Provider Unavailabl e Social History Tobacco Use Types Packs/Day Years Used Date Smoking Tobacco: Never Assessed Sex and Gender Information Value Date Recorded Sex Assigned at Not on file Legal Sex Male 8:57 PM EST Gender Identity Not on file Sexual Orientation Not on file Plan of Treatment Health Maintenance Due Date Last Done Comments DTaP,Tdap,and Td Vaccines (1 - Tdap) 2014 Hepatitis B Vaccines (1 of 3 - 19+ 3-dose series) 2014 COVID-19 Vaccine (2023-2 5 season) 2024 Influenza Vaccine (#1) 2024 HIB Vaccines Aged Out No longer eligi ble based on patient's age to complete this topic HPV Vaccines Aged Out No longer eligi ble based on patient's age to complete this topic Hepatitis A Vaccines Aged Out No long er eligible based on patient's age to complete this topic IPV Vaccines Aged Out No longer eligi ble based on patient's age to complete this topic MMR Vaccines Aged Out No longer eligi ble based on patient's age to complete this topic Meningococcal ACWY Vaccine Aged Out N o longer eligible based on patient's age to complete this topic Meningococcal B Vacine Aged Out No lo nger eligible based on patient's age to complete this topic Pneumococcal Vaccine: Pediat rics (0 to 5 Years) and At-Risk Patients (6 to 64 Years) Aged Out No longer eligible b ased on patient's age to complete this topic RSV Immunization Patients Un william 20 months Aged Out No longer eligible b ased on patient's age to complete this topic Varicella Vaccines Aged Out No longer eligible based on patient's age to complete this topic
--- OUTSIDE RECORDS SUMMARY | 2024-10-06 11:16 | XMS_ITS | Data Portability ---
Author Organization TOAN Ramirez s, [address] Address [address] [place] [address] Assessment No assessment recorded. Plan of Treatment Reminders Order Date Submit Date Provider Last Modified By Organization Details Last Modified Time Details Appointments None recorded. Lab None recorded. Referral orthopedic surgeon referral 2022 023 [email or web address] Not available 10:28:21 physical therapist referral - Left shoulder strain 2022 023 [email or web address] Not available 3 07:25:18 Procedures None recorded. Surgeries None recorded. Imaging XR, shoulder, 2 or more view 2022 023 [facility], [address] [place] [address], [address], 19:03:47 Medication Orders naproxen 500 mg tablet 2022 023 [id number], [address] [place], [address], 3 12:44:20 naproxen 500 mg tablet 2022 023 [id number], [address] [place], [address], 3 12:44:20 Patient TargetsNo targets recorded. Patient Instructions Encounter Date Encounter Id Patient Instructions Last Modified By Organization Details Last Modified Time 12/07/2022 [id number] You can hurt you r shoulder by using it too much during an activity, such as fishing or baseball. It can also happen as part of the everyday wear and tear of getting older. Shoulder injuries can be slow to heal, but your shoulder should get better with time. Your doctor may recommend a sling to rest your shoulder. If you have injured your shoulder, you may need testing and treatment. How can you care for yourself at home? Take pain medicines exactly as directed. If the doctor gave you a prescription medicine for pain, take it as prescribed. If you are not taking a prescription pain medicine, ask your doctor if you can take an nfjm-grr-nyaseni medicine. Do not take two or more pain medicines at the same time unless the doctor told you to. Many pain medicines contain acetaminophen, which is Tylenol. Too much acetaminophen (Tylenol) can be harmful. If your doctor recommends that you wear a sling, use it as directed. Do not take it off before your doctor tells you to. Put ice or a cold pack on the sore area for 10 to 20 minutes at a time. Put a thin cloth between the ice and your skin. If there is no swelling, you can put moist heat, a heating pad, or a warm cloth on your shoulder. Some doctors suggest alternating between hot and cold. Rest your shoulder for a few days. If your doctor recommends it, you can then begin gentle exercise of the shoulder, but do not lift anything heavy. [email or web address] Not available 12/07/2022 18:18:14 12/12/2022 [id number] shoulder sprain: care instructions [email or web address] Not available 12/12/2022 10:13:56 Reason for Referral Physical Therapist Referral for Pain of left shoulder joint Left shoulder strain Referring Physician: Gian Mason, Urgent Care, Encounter Date: 12/12/2022 Orthopedic Surgeon Referral for Sprain of ligament of left shoulder joint Left shoulder pain and weakness Referring Physician: Gian Mason [facility], Encounter Date: 12/23/2022 Results Created Date Observation Date Name Description Value Unit Range Abnormal Flag Note LastModifiedBy Organization Detail LastModifiedTime 12/08/19 23 12/07/2022 XR, shoul william, 2 or more view No observ ation record ed. [email or web address] [facility] [address], [place], [address], 12/07/2022 19:26:36 Result Notes None recorded. Problems Name Problem SNOMED Code Status Onset Date Resolution Date Notes Provider Name and Address Organization Details Recorded Time Depressive disorder 79664910 Active 2022 Margedirk Jose null, PA - [facility] 3 18:05:24 Attention deficit hyperactivity disorder 060253487 Active 2022 Margedirk Jose null, PA - [facility] 3 18:05:32 Irritable bowel syndrome 31632056 Active 2022 Marge Rebeca null, PA - [facility] 3 18:05:36 Problem Notes None recorded. Procedures Surgical History None recorded. Imaging Results Imaging Date Name Status [facility]Modified by [facility] Details LastModified Time 12/07/2022 XR, shoulder, 2 or more view completed [facility] [address] [facility] [place], [address], 12/07/2022 19:26:36 Procedure Notes None recorded. Medical Equipment None Reported. Allergies No known drug allergies Medications Name Sig Start Date Stop Date Status Note LastModified by Organization Details LastModified Time omeprazole 40 mg capsule,del ayed release TAKE 1 CAPSULE BY MOUTH EVERY DAY 12/07 completed Not Available Not Available Not Available bupropion HCl SR 100 mg tablet,12 hr sustained-r elease TAKE 1 TABLET BY MOUTH EVERY DAY IN THE MORNING 02/14 completed Not Available Not Available Not Available naproxen 500 mg tablet Take 1 tablet twice a day by oral route with meals for 5 days. 02/14 completed Not Available Not Available Not Available bupropion HCl XL 150 mg 24 hr tablet, extended release TAKE 1 TABLET BY MOUTH EVERY DAY IN THE MORNING 02/14 completed Not Available Not Available Not Available Vyvanse 30 mg capsule TAKE 1 CAPSULE BY MOUTH EVERY DAY IN THE MORNING active Not Available Not Available No t Available Vyvanse 40 mg capsule active Not Available Not Available N ot Available Pristiq 100 mg tablet,exte nded release TAKE 1 TABLET BY MOUTH EVERY DAY DIRECTED active Not Available Not Available No t Available Vitals Date Recorded Body height Oxygen saturation Oxygen saturation in Arterial blood by Pulse oximetry Pain severity - 0-10 verbal numeric rating [Score] - Reported Heart rate Respiratory rate Body temperature Body mass index (BMI) Body weight Systolic blood pressure Diastolic blood pressure Provider Name and Address Organization Details Last Updated DateTime 3 180.34 cm 96 % 96 % 10 63 /min 20 /min 97.6 [degF] 34.4 kg/m2 910552. 32 g 100 mm[Hg] 66 mm[Hg] Marge Jose [facility] 3 18:07:16 Date Recorded Body height Body mass index (BMI) Body weight Pain severity - 0-10 verbal numeric rating [Score] - Reported Respiratory rate Oxygen saturation Oxygen saturation in Arterial blood by Pulse oximetry Heart rate Body temperature Systolic blood pressure Diastolic blood pressure Provider Name and Address Organization Details Last Updated DateTime 3 180.34 cm 34.4 kg/m2 532667. 32 g 8 20 /min 96 % 96 % 73 /min 97.9 [degF] 107 mm[Hg] 77 mm[Hg] Marge Jose [employer] [facility] 3 09:42:19 Date Recorded Body height Body mass index (BMI) Body weight Respiratory rate Body temperature Oxygen saturation Oxygen saturation in Arterial blood by Pulse oximetry Heart rate Systolic blood pressure Diastolic blood pressure Provider Name and Address Organization Details Last Updated DateTime 3 180.34 cm 34.4 kg/m2 240417. 32 g 18 /min 98.2 [degF] 96 % 96 % 69 /min 118 mm[Hg] 77 mm[Hg] NESHA BARRON [employer] [facility] 3 12:16:35 Date Recorded Body height Body mass index (BMI) Body weight Pain severity - 0-10 verbal numeric rating [Score] - Reported Respiratory rate Oxygen saturation Oxygen saturation in Arterial blood by Pulse oximetry Heart rate Body temperature Systolic blood pressure Diastolic blood pressure Provider Name and Address Organization Details Last Updated DateTime 3 180.34 cm 34.4 kg/m2 645694. 32 g 0 20 /min 96 % 96 % 83 /min 98.1 [degF] 124 mm[Hg] 81 mm[Hg] Marge Jose [employer] [facility] 3 12:45:50 Social History Question Answer Notes LastModified by Organizat ion Details LastModified Time Tobacco Smoking Status Never Smoker Marge Rebeca null, PA - [facility] 12/07/2022 18:05:53 What Is Your Level Of Alcohol Consumption? None Information not available 12/07/2022 Which Illicit Or Recreational Drugs Have You Used? Marijuana Information not available 12/07/2022 Do You Or Have You Ever Used E-cigarettes Or Vape? Current User Of Electronic Cigarettes Information not available 12/07/2022 Have You Had Direct Contact, Or Contact During Intimacy, With Monkeypox Rash, Scabs, Or Body Fluids From A Person With Monkeypox? No Information not available 12/07/2022 Do You Use Any Illicit Or Recreational Drugs? Yes Information not available 12/07/2022 Have You Recently Traveled Abroad? No Information not available 12/07/2022 Do You Or Have You Ever Used Any Other Forms Of Tobacco Or Nicotine? Yes Information not available 12/07/2022 Sex: Unknown Functional Status None recorded. Mental Status None recorded. Family History Relationship Description Onset Age of this Age Resolved Age Notes LastModified by Organization Details LastModified Time Father No current problems or disability Not available 12/07 18:05:37 Mother No current problems or disability Not available 12/07 18:05:37 Medical History No medical history recorded. Immunizations Vaccine Type Date Status Note Provider Nam e and Address Organization Details Recorded Time HPV9 10/12/2015 completed Marge Dallas null, PA - [facility] 12/07/2022 18:04:59 HPV9 12/13/2015 completed Marge Dallas null, PA - [facility] 12/07/2022 18:04:59 Tdap 12/04/2012 completed Marge Rebeca null, PA - [facility] 12/07/2022 18:04:59 Hep A, adult 12/13/2015 completed Marge Dallas null, PA - [facility] 12/07/2022 18:04:59 Influenza, split virus, quadrivalent, PF 07/05/2020 completed TOAN Welch - [facility] 12/07/2022 18:04:59 Influenza, split virus, quadrivalent, PF 07/20/2015 completed TOAN Welch - [facility] 12/07/2022 18:04:59 Past Encounters Encounter ID Performer Location Encounter Start Date Encounter Closed Date Diagnosis/Indication Diagnosis SNOMED-CT Code Diagnosis ICD10 Code Diagnosis Note [id number] [facility] [address] [place] [address] [place] [address] 05/11/2019 19:33:34 05/11/2019 20:04:05 [id number] [facility] [address] [place] [address] [place] [address] 08/07/2018 10:52:51 08/07/2018 12:05:55 [id number] [address] [facility] [address] [place] [address] 03/14/2017 18:25:24 03/14/2017 19:12:18 [id number] [address] [facility] [facility] [address] [place] [address] 11/17/2020 14:17:30 11/17/2020 15:32:17 [id number] [address] [address] [place] [address] 08/18/2021 11:27:53 08/18/2021 15:44:59 [id number] Gerardo Bragg NP [address] [address] [place] [address] 12/07/2022 17:10:38 12/07/2022 18:43:10 Pain of left shoulder blade 207524615 M25.512 [id number] Gian Mason MD [address] [place] [address] 12/12/2022 09:20:21 12/12/2022 10:23:33 Pain of left shoulder joint 6253661369 [id number] M25.512 Shoulder diffusely tender with all movement.X ray reviewed and normal at last visitIt has been 5 days since injury, Recommend Light Duty and follow up 1 weekWill start PT referral. [id number] Gian Mason MD [address] [place] [address] 12/23/2022 12:04:31 12/23/2022 12:41:14 Sprain of ligament of left shoulder joint 4337633217 [id number] S43.402D NO improvemen tPhysical Therapy follow up this week.Ovidio glover see specialist at this point for continued weakness left arm and no improvemen tFollow up in 2 weeks [facility] [id number] TOAN BLACKWELL [address] [place] [address] 02/14/2023 12:09:52 02/14/2023 13:18:44 Sprain of ligament of left shoulder joint 3168062620 [id number] S43.402D Improvemen t with PTContinue to follow up with Physical Therapy/Th ere is a referral pending for an orthopedis t appointmen t - that is scheduled. We will plan on seeing you in 2 weeks after the completion of PT. IT is promising that the Physical therapy feels you will be ready in 2 weeks. Continue to be conservati ve at home with activities . Continue Ibuprofen and Tylenol as needed. Health Concerns Section Related Observation LastModified by Organization Detai ls LastModified Time None Recorded Concern Status LastModified by Organization Details LastModified Time None Recorded Advance Directives Directive None Recorded Payers Encounter Date Sequence Insurance Name Policy Number Policy Tucker Covered Member ID Tucker Member ID Guarantor Name 08/18/2021 1 [facility] (MEDICAID REPLACEMENT - HMO) CATA Huggins [id number] Abelino Huggins 12/07/2022 [employer]bert Huggins 12/12/2022 [employer]bert Huggins 12/23/2022 1 [facility] (MEDICAID REPLACEMENT - HMO) CATA Huggins [id number] Abelino Huggins 02/14/2023 [employer] robert Huggins Notes Date Note Type Note Provider Name and Address Organization Details Recorded Time 3 text/html Shoulder UCReported bypatient.source of patient informationInformation obtained from patient; Patient arrived at Urgent Care ambulatory Hand Dominance:left Location:left; posterior Quality:aching; sharp; frequent; worsening Severity:moderate; pain level 4/10 Duration:2 days Timing:acute Context:lifting; twisting; work injury Alleviating Factors:rest Aggravating Factors:lifting; twisting; pushing/pulling; ROM Associated Symptoms:no weakness; no numbness; no tingling; no swelling; no redness; no warmth; no ecchymosis; no catching/locking; no buckling; no grinding; no instability; no radiation down arm; no drainage; no fever; no chills; no weight loss; no change in bowel/bladder habits;popping/clicking Previous InjuryNo prior injury to affected body part Previous Treatmentnone Prior Imaging:none Gerardo Bragg NP [address] [place], [address], [employer] 12/07/2022 18:43:20 3 text/html Shoulder UCReported bypatient.source of patient informationInformation obtained from patient; Patient arrived at Urgent Care ambulatory Hand Dominance:left Location:left; posterior Quality:aching; sharp; frequent; no change Severity:moderate; pain level 4/10 Duration:days; 2 weeks Timing:acute Context:lifting; twisting; work injury Alleviating Factors:rest Aggravating Factors:lifting; twisting; pushing/pulling; ROM Associated Symptoms:no numbness; no tingling; no swelling; no redness; no warmth; no ecchymosis; no catching/locking; no buckling; no grinding; no instability; no radiation down arm; no drainage; no fever; no chills; no weight loss; no change in bowel/bladder habits;weakness Previous InjuryNo prior injury to affected body part Previous Treatmentnone Prior Imaging:none Gian Mason MD [address] [place], [address], [employer] 12/24/2022 09:31:17 3 text/html Shoulder UCReported bypatient.source of patient informationInformation obtained from patient; Patient arrived at Urgent Care ambulatory Hand Dominance:left Location:left; anterior Quality:aching; improving Severity:moderate; pain level 4/10 Duration:4 weeks Context:lifting; twisting; work injury Alleviating Factors:PT/OT Aggravating Factors:lifting; twisting; pushing/pulling; ROM Associated Symptoms:no numbness; no tingling; no swelling; no redness; no warmth; no ecchymosis; no catching/locking; no buckling; no grinding; no instability; no radiation down arm; no drainage; no fever; no chills; no weight loss; no change in bowel/bladder habits;weakness; Increasing weight lifting amount by PT. Up to 27 pounds. Needs 50 pounds to be able to return to work. PT thinks 2 more weeks. Previous InjuryNo prior injury to affected body part Previous TreatmentPhysical TherapyNotes: Visit #3 - improving. No working since there is no light duty offered. The patient denies any numbness in the arm. The PT feels that this is a AC tear. TOAN BLACKWELL [address] [place], [address], [place] - [facility] 02/14/2023 14:22:36
== END 2024-10-06 10:36 | disposition home or self-care (01) ==
PROVIDERS: PCP Nurse Practitioner Family; Visit Provider Physician Assistant
DX: M79.675 Pain in left toe(s) (principal)

== ENCOUNTER → 2024-10-06 10:18 | Outpatient (BNV) | payer OTHER, SELFPAY | PROVIDERS: PCP Nurse Practitioner Family; Visit Provider Radiology Diagnostic Radiology | DX: M79.675 Pain in left toe(s) (principal) | CPT/HCPCS: 73660 ==

== ENCOUNTER 2025-03-31 08:55 | Outpatient (AMB) | payer OTHER, SELFPAY ==
--- NOTE | 2025-03-31 08:56 | AM.OFFWIN_ITS ---
Intake Vital Signs 03/31/25 09:01 Height 6 ft Weight 248 lb BMI 33.6 BP 104/72 Blood Pressure Location Rt brachial Position Sitting Pulse 73 Pulse Source Pulse Oximeter Temp 98.2 F Temp Source Oral Pulse Oximetry (%) 97 Oxygen Delivery Method Room Air Intake Visit Reasons: EP-?lt ear infection, vomiting, lock of energy Intake Note: ? ear infection, vomiting and lack of energy x 2 days Patient Tobacco Use Status: Former Tobacco user Silver Min[employer] Required: No Allergies fluoxetine (Prozac) Allergy (Unknown, Verified 03/31/25 08:56) seizure Do you need a note to return to daycare/school/sports/work: Yes HPI HPI Comments History of Present Illness Details 30 y/o Female patient who presents to [facility] walk in clinic with c/o Left Ear pain associated with Nausea, vomiting and fatigue for 3 days now. Reports throwing up once at work but denies any more episodes. Denies fevers, or chills. Home COVID test negative this morning. [facility] Medical History (Updated 03/31/25 @ 09:14 by Diane Borrego NP) Ear pain, left IBS (irritable bowel syndrome) Mireles's palsy ADHD ADD (attention deficit disorder) Surgical History H/O colonoscopy Family History Father No problems noted. Mother Hypothyroidism Lymphoma Brother No problems noted. Brother No problems noted. Brother No problems noted. Social History Housing: House Alcohol intake: never Patient Tobacco Use Status: Former Tobacco user Tobacco use type: Cigarette Years Smoked: quit 9months ago e-Cigarette/Vaping Use: Currently Using Second Hand Smoke Exposure: Yes service: No Current occupational status: employed Current occupation: [employer] Current occupational exposures/hazards: Yes Cognitive needs: No Hearing needs: No Vision needs: No Review of Systems Const All systems reviewed & are unremarkable except as noted in HPI and below Physical Exam Vital Signs: Last Vital Signs Temp 98.2 F 03/31/25 09:01 Pulse 73 03/31/25 09:01 BP 104/72 03/31/25 09:01 Pulse Ox 97 03/31/25 09:01 Oxygen Delivery Method Room Air 03/31/25 09:01 BMI result Body Mass Index 33.6 Const General: no acute distress; No comfortable Nutritional Appearance: overweight Orientation/consciousness: patient oriented x3 HEENT Head: Yes normocephalic Ears: external ears normal and TM abnormal bulging bilateral and with fluid behind the TM bilateral; not perforated General nose exam: Abnormal mucous membranes and turbinates present boggy Face and sinus: Yes sinuses nontender Mouth: moist mucous membranes Throat: Yes uvula midline Resp Effort & Inspection: normal respiratory effort and able to speak in complete sentences Auscultation: clear to auscultation bilaterally Cardio Heart sounds: S1 normal heart sound present and S2 normal heart sound present Neuro General: patient oriented x3 Assessment & Plan Assessment & Plan (1) Ear pain, left: Code(s): H92.02 - Otalgia, left ear Plan: B/L TM bulging with clear fluid. Ordered Decongestant BID for 10 days. Acetaminophen for pain relief. Medications: New acetaminophen 1,000 mg (2 x 500 mg) PO Q6H 30 caps 0RF pain H92.02 - Otalgia, left ear cetirizine (Zyrtec) 10 mg PO BID 20 tabs 0RF 10 days H92.02 - Otalgia, left ear Coding Level of Care Code Est Pt Level 4 (01962) Diagnoses Ear pain, left H92.02 Time Spent (min) 20
[2025-03-31 09:01] VITALS: BP 104/72; PULSE 73; TEMP 36.8; O2SAT 97; BMI 33.6
--- OUTSIDE RECORDS SUMMARY | 2025-03-31 09:54 | XMS_ITS | Encounter Summary ---
Author Organization [facility] Address [address] [place] [address] Phone Care Team Providers Care Prosthetist Name Role Phone Mariah Coronel DO Primary Care Provider [phone] Encounter Details Date Type Department Care Team (Late st Contact Info) Description 05/17/2013 Documentation EM Family Medicine [address] [place] [address] Family Medicine, Physician [address] [place], [place] [phone] Social History Tobacco Use Types Packs/Day Years Used Date Smoking Tobacco: Never Assessed Sex and Gender Information Value Date Recorded Sex Assigned at Not on file Legal Sex Male 5:01 PM EDT Gender Identity Not on file Sexual Orientation Not on file documented as of this encounter Plan of Treatment Not on file documented as of this encounter Visit Diagnoses Not on filedocumented in this encounter Care Teams Prosthetist Relationship Specialty Start Date End Date Mariah Coronel DO [address] [place] [address] PCP - General 03/21/17 11/18/22 documented as of this encounter
--- OUTSIDE RECORDS SUMMARY | 2025-03-31 09:55 | XMS_ITS | Clinical Summary ---
Author Organization [facility] Address [address] [place] [address] Phone Care Team Providers Care Automatic Corn Grinder Operator Name Role Phone Silvio Arevalo NP Primary Care Provider Social History Tobacco Use Types Packs/Day Years [...] 2014 COVID-19 Vaccine (2023-2 5 season) 2024 Depression Screening 08/11/2024 HIV Screening 10/25/2024 Hepatitis C Screening 10/25/2024 Social Influencers of Health Screening 10/25/2024 Influenza Vaccine (#1) 2025 HIB Vaccines Aged Out No longer eligi [...] age to complete this topic Meningococcal B Vaccine Aged Out No l onger eligible based on patient's age to complete this topic Pneumococcal Vaccine: Pediat rics (0 to 5 Years) and At-Risk Patients (6 to 49 Years) Aged Out No longer eligible b ased on patient's age to complete this topic RSV Immunization Patients Un william 20 months Aged Out No longer eligible b ased on patient's age to complete this topic Varicella Vaccines Aged Out No longer eligible based on patient's age to complete this topic Insurance [facility] Care Teams Automatic Corn Grinder Operator Relationship Specialty Start Date End Date Silvio Arevalo NP [address] [place], [place] PCP - General Family Medicine 10/25/24
== END 2025-03-31 09:24 | disposition home or self-care (01) ==
PROVIDERS: PCP Nurse Practitioner Family; Visit Provider Nurse Practitioner Family
DX: H92.02 Otalgia, left ear (principal)

== ENCOUNTER → 2025-03-31 08:55 | Outpatient (BNVA) | payer OTHER, SELFPAY | PROVIDERS: PCP Nurse Practitioner Family; Visit Provider Nurse Practitioner Family | DX: H92.02 Otalgia, left ear (principal); R53.83 Other fatigue; R11.2 Nausea with vomiting, unspecified | CPT/HCPCS: 99212 ==

== ENCOUNTER 2025-04-18 13:27 | Outpatient (AMB) | payer OTHER, SELFPAY ==
[2025-04-18 13:35] VITALS: BP 110/72; PULSE 79; TEMP 36.7; O2SAT 98
--- NOTE | 2025-04-18 13:35 | MHC.OFFWIV ---
Intake Vital Signs 04/18/25 13:35 Height 6 ft BP 110/72 Blood Pressure Location Lt brachial Position Sitting Pulse 79 Pulse Source Pulse Oximeter Temp 98.0 F Temp Source Oral Pulse Oximetry (%) 98 Oxygen Delivery Method Room Air Intake Visit Reasons: ep possible food poisioning/ ibs concerns Patient Tobacco Use Status: Former Tobacco user Allergies fluoxetine (Prozac) Allergy (Unknown, Verified 04/18/25 13:35) seizure Do you need a note to return to daycare/school/sports/work: No HPI HPI Comments History of Present Illness Details 30 y/o Male patient who presents to the walk in clinic with c/o Diarrhea, nausea and vomiting since Friday. Reports H/o IBS and it is Diet control. Reports unable to eat due to Nausea and vomiting. Denies Fevers or chills. [facility] Medical History (Updated 04/18/25 @ 14:20 by Diane Borrego NP) Ear pain, left IBS (irritable bowel syndrome) Mireles's palsy ADHD ADD (attention deficit disorder) Surgical History H/O colonoscopy Family History Father No problems noted. Mother Hypothyroidism Lymphoma Brother No problems noted. Brother No problems noted. Brother No problems noted. Social History Housing: House Alcohol intake: never Patient Tobacco Use Status: Former Tobacco user Tobacco use type: Cigarette Years Smoked: quit 9months ago e-Cigarette/Vaping Use: Currently Using Second Hand Smoke Exposure: Yes service: No Current occupational status: employed Current occupation: [employer] Current occupational exposures/hazards: Yes Cognitive needs: No Hearing needs: No Vision needs: No Review of Systems Const All systems reviewed & are unremarkable except as noted in HPI and below Physical Exam Vital Signs: Last Vital Signs Temp 98.0 F 04/18/25 13:35 Pulse 79 04/18/25 13:35 BP 110/72 04/18/25 13:35 Pulse Ox 98 04/18/25 13:35 Oxygen Delivery Method Room Air 04/18/25 13:35 Const General: no acute distress Nutritional Appearance: obese Orientation/consciousness: patient oriented x3 GI Inspection: Yes obesity Palpation (GI): Soft to palpation, not firm, Tenderness to palpation present (GI) (Generalized Abdominal pain.), no guarding, not rigid and No hepatosplenomegaly present Auscultation: normal bowel sounds Neuro General: patient oriented x3, gait normal and tone normal Psych Speech and movement: Normal speech and movement present Assessment & Plan Assessment & Plan (1) Gastritis: Code(s): K29.70 - Gastritis, unspecified, without bleeding Qualifiers: Gastritis type: other gastritis Chronicity: chronic Gastritis bleeding: without bleeding Qualified Code(s): K29.50 - Unspecified chronic gastritis without bleeding Plan: Ordered Zofran and Reglan to manage symptoms. Advised to avoid Oily and spicy Foods. F/U with PCP for Possible GI referral. Medications: New metoclopramide HCl (Reglan) 5 mg PO Q6H 20 tabs 0RF K29.50 - Unspecified chronic gastritis without bleeding ondansetron 8 mg PO Q8H 30 tabs 0RF K29.50 - Unspecified chronic gastritis without bleeding Coding Level of Care Code Est Pt Level 4 (93377) Diagnoses Other chronic gastritis without hemorrhage K29.50 Gastritis type: other gastritis Chronicity: chronic Gastritis bleeding: without bleeding Time Spent (min) 20
--- OUTSIDE RECORDS SUMMARY | 2025-04-18 15:43 | XMS_ITS | Encounter Summary ---
Author Organization [facility] Address [address] [place] [address] Phone Care Team Providers Care Investment Fund Manager Name Role Phone Mariah Coronel DO Primary Care Provider [phone] Encounter Details Date Type Department Care Team (Late st Contact Info) Description 05/17/2013 Documentation EM Family Medicine [address] [place] [address] Family Medicine, Physician [address] [place], [place] [phone] Social History Tobacco Use Types Packs/Day Years [...] on filedocumented in this encounter Care Teams Investment Fund Manager Relationship Specialty Start Date End Date Mariah Coronel DO [address] [place] [address] PCP - General 03/21/17 11/18/22 documented as of this encounter
--- OUTSIDE RECORDS SUMMARY | 2025-04-18 15:44 | XMS_ITS | Encounter Summary ---
Author Organization [facility] Address [address] [place] [address] Phone Care Team Providers Care Manager Financial Systems Name Role Phone Mariah Coronel DO Primary Care Provider [phone] Encounter Details Date Type Department Care Team (Late st Contact Info) Description 11/29/2009 Documentation EM Family Medicine [address] [place] [address] Family Medicine, Physician [address] [place], [place] [phone] Social History Tobacco Use Types Packs/Day Years [...] on filedocumented in this encounter Care Teams Manager Financial Systems Relationship Specialty Start Date End Date Mariah Coronel DO [address] [place] [address] PCP - General 03/21/17 11/18/22 documented as of this encounter
--- OUTSIDE RECORDS SUMMARY | 2025-04-18 15:44 | XMS_ITS | Clinical Summary ---
Author Organization [facility] Address [address] [place] [address] Phone Care Team Providers Care Christian Science Reader Name Role Phone Silvio Arevalo NP Primary [...] of 3 - 19+ 3-dose series) 2014 Depression Screening 08/11/2024 HIV Screening 10/25/2024 Hepatitis C Screening 10/25/2024 Social Influencers of Health Screening 10/25/2024 COVID-19 Vaccine (2023-2 5 season) 2025 Influenza Vaccine (#1) 2025 HIB Vaccines Aged [...] patient's age to complete this topic Insurance [facility] [place] [address] Care Teams Christian Science Reader Relationship Specialty Start Date End Date Silvio Arevalo NP [address] [place], [place] PCP - General Family Medicine 10/25/24
--- OUTSIDE RECORDS SUMMARY | 2025-04-18 15:44 | XMS_ITS | Encounter Summary ---
Author Organization [facility] Address [address] [place] [address] Phone Care Team Providers Care Dredge Operator Supervisor Name Role Phone Mariah Coronel DO Primary Care Provider [phone] Encounter Details Date Type Department Care Team (Late st Contact Info) Description 03/27/2017 Conversion Encounter [facility] [address] [place] [address] Social History Tobacco Use Types Packs/Day Years Used Date Smoking Tobacco: Never Comments:Never smoker Sex and Gender Information Value Date Recorded Sex Assigned at Not on file Legal Sex Male 5:01 PM EDT Gender Identity Not on file Sexual Orientation Not on file documented as of this encounter Plan of Treatment Not on file documented as of this encounter Visit Diagnoses Not on filedocumented in this encounter Care Teams Dredge Operator Supervisor Relationship Specialty Start Date End Date Mariah Coronel DO [address] [place] [address] PCP - General 03/21/17 11/18/22 documented as of this encounter
--- OUTSIDE RECORDS SUMMARY | 2025-04-18 15:44 | XMS_ITS | Encounter Summary ---
Author Organization [facility] Address [address] [place] [address] Phone Care Team Providers Care Winding Department Supervisor Name Role Phone Mariah Coronel DO Primary Care Provider [phone] Encounter Details Date Type Department Care Team (Late st Contact Info) Description 12/12/2010 Documentation EM Family Medicine [address] [place] [address] Family Medicine, Physician [address] [place], [place] [phone] Social History Tobacco Use Types Packs/Day Years [...] on filedocumented in this encounter Care Teams Winding Department Supervisor Relationship Specialty Start Date End Date Mariah Coronel DO [address] [place] [address] PCP - General 03/21/17 11/18/22 documented as of this encounter
--- OUTSIDE RECORDS SUMMARY | 2025-04-18 15:44 | XMS_ITS | Encounter Summary ---
Author Organization [facility] Address [address] [place] [address] Phone Care Team Providers Care Tightening Machine Operator Name Role Phone Mraiah Coronel DO Primary Care Provider [phone] Encounter Details Date Type Department Care Team (Late st Contact Info) Description 12/29/2009 Documentation EM Family Medicine [address] [place] [address] Family Medicine, Physician [address] [place], [place] [phone] Social History Tobacco Use Types Packs/Day Years [...] on filedocumented in this encounter Care Teams Tightening Machine Operator Relationship Specialty Start Date End Date Mariah Coronel DO [address] [place] [address] PCP - General 03/21/17 11/18/22 documented as of this encounter
--- OUTSIDE RECORDS SUMMARY | 2025-04-18 15:44 | XMS_ITS | Encounter Summary ---
Author Organization [facility] Address [address] [place] [address] Phone Care Team Providers Care Email Marketing Coordinator Name Role Phone Mariah Coronel DO Primary Care Provider [phone] Encounter Details Date Type Department Care Team (Late st Contact Info) Description 10/08/2013 Documentation EM Family Medicine [address] [place] [address] Family Medicine, Physician [address] [place], [place] [phone] Social History Tobacco Use Types Packs/Day Years [...] on filedocumented in this encounter Care Teams Email Marketing Coordinator Relationship Specialty Start Date End Date Mariah Coronel DO [address] [place] [address] PCP - General 03/21/17 11/18/22 documented as of this encounter
--- OUTSIDE RECORDS SUMMARY | 2025-04-18 15:44 | XMS_ITS | Clinical Summary ---
Author Organization [facility] Address [address] [place] [address] Phone Care Team Providers Care Boatswain Mate Name Role Phone Unavailable Primary Care Provider Unavailabl e Immunizations Immunization Administration Dates Next Due DTP 1995,1995,1995 DTaP 5 05/13/2000,11/04/1996 HPV Vaccine 9 Valent 12/13/2015,10/12/2015 Hep A, Adult 12/13/2015 Hep B, ped/adol 1995,1995,1995 Hib (PRP-T) 05/25/1996, 6,1995,04/04 IPV 05/13/2000 Influenza Split 07/08/2012,04/09/2010 Influenza, injectable, quadr ivalent, preservative free 07/20/2015 Influenza, injectable, trivalent 05/10/2009,05/12,05/29/2007 MMR 04/24/1999,02/26/1996 Meningococcal Conj (Menactra) MCV4P 11/05/2007 OPV 1995,1995,1995 Tdap 12/04/2012,06/17/2006 Family History Relation Name Status Comments Father Alive Father: Alive a nd well Mother Mother: Hypothy roidism, Lymphoma Social History Tobacco Use Types Packs/Day Years Used Date Smoking Tobacco: Never Comments:Never smoker Sex and Gender Information Value Date Recorded Sex Assigned at Not on file Legal Sex Male 5:01 PM EDT Gender Identity Not on file Sexual Orientation Not on file Last Filed Vital Signs Vital Sign Reading Time Taken Comments Blood Pressure 122/82 12/06/2015 12:00 AM EDT Pulse 82 12/06/2015 12:00 AM EDT Temperature 36.6 C (97.8 F) 12/06/2015 12:00 AM EDT Respiratory Rate - - Oxygen Saturation 96% 03/01/2013 12:00 AM EDT Inhaled Oxygen Concentration - - Weight 104 kg (228 lb 9.6 oz) 12/06/2015 12:00 A M EDT Height 177.8 cm (5' 10 ) 12/06/2015 12:00 AM EDT Body Mass Index 32.8 12/06/2015 12:00 AM EDT Plan of Treatment Health Maintenance Due Date Last Done Comments Varicella Vaccines (1 of 2 - 13+ 2-dose series) 01/28/2008 HPV Vaccines (3 - Male 3-dose series) 04/13/2016 12/13/2015, 10/12/2015 DTaP,Tdap,and Td Vaccines (8 - Td or Tdap) 12/04/2022 12/04/2012, 06/17/2006, 05/13/2000, Additional history exists Influenza Vaccines (#1) 2025 07/20/20, 07/08/2012, 04/09/2010, Additional history exists COVID-19 Vaccine ( season) 2025 Hepatitis B Vaccines Completed 1995, 1995, 1995 HIB Vaccines Completed 05/25/1996, 12/1995, 1995, Additional history exists MMR Vaccines Completed 04/24/1999, 02/26/1996 IPV Vaccines Completed 05/13/2000, 12/1995, 1995, Additional history exists Meningococcal Vaccine Aged Out 11/05/2007 No sebastien loida eligible based on patient's age to complete this topic Hepatitis A Vaccines Aged Out 12/13/2015 No long er eligible based on patient's age to complete this topic Men B Vaccine Aged Out No longer elig ible based on patient's age to complete this topic Pneumococcal Vaccine Aged Out No long er eligible based on patient's age to complete this topic
== END 2025-04-18 14:23 | disposition home or self-care (01) ==
PROVIDERS: PCP Nurse Practitioner Family; Visit Provider Nurse Practitioner Family
DX: K29.50 Unspecified chronic gastritis without bleeding (principal)

== ENCOUNTER → 2025-04-18 13:27 | Outpatient (BNVA) | payer OTHER, SELFPAY | PROVIDERS: PCP Nurse Practitioner Family; Visit Provider Nurse Practitioner Family | DX: K29.50 Unspecified chronic gastritis without bleeding (principal) | CPT/HCPCS: 99212 ==